=== PATIENT | female | born 1995 | race Caucasian/White ===

== ENCOUNTER 2022-01-19 23:59 | Emergency (ER) | payer OTHER ==
[2022-01-20 00:54] LABS: BASOPHIL 0.8 % (0-2); EOSINOPHIL 1.2 % (0-5); HCT 40.9 % (37.0-47.0); HGB 13.6 g/dl (12.5-16.0); LYMPHOCYTE 30.7 % (15-48); MCH 30.2 pg (25.0-31.0); MCHC 33.3 g/dL (32.0-36.0); MCV 90.7 fL (78.0-100.0); MONOCYTE 7.5 % (0-12); MPV 9.5 fL (6.0-9.5); NEUTROPHIL 59.3 % (41-80); NRBC 0; PLT 356 K/uL (150-400); RBC 4.51 M/uL (4.20-5.40); WBC 10.5 K/uL (4.0-10.5)
[2022-01-20 01:05] LABS: ALBUMIN 3.4 g/dL (3.4-5.0); BILIRUBIN - TOTAL 0.3 mg/dL (0.2-1.0); BUN/CREAT RATIO (CALC) 8.6 RATIO; CREATININE 0.93 mg/dL (0.51-0.95); GLOBULIN (CALCULATION) 3.8 g/dL; POTASSIUM 3.3 mmol/L (3.5-5.1); TOTAL PROTEIN 7.2 g/dL (6.4-8.2)
[2022-01-20] MEDS ORDERED: SENNA PLUS 8.61 EACH PO (02:32)
[2022-01-20] MEDS ORDERED: MIRALAX 238GM238 GM PO (02:32)
== END 2022-01-20 03:05 | disposition home or self-care (01) ==
LOC: FER 23:59
PROVIDERS: Internal Medicine
DX: K59.00 Constipation, unspecified (principal)
CPT/HCPCS: 36415; 80053; 83690; 85025